=== PATIENT | male | born 1945 | race Caucasian/White ===

== ENCOUNTER → 2018-12-12 | Outpatient (CLI) | payer MEDICARE | END | disposition home or self-care (01) | LOC: CFH 12:21 | PROVIDERS: ATTEND Nurse Practitioner | DX: Z12.2 Encounter for screening for malignant neoplasm of respiratory organs (principal); Z87.891 Personal history of nicotine dependence | CPT/HCPCS: G0297 ==

== ENCOUNTER → 2019-12-20 | Outpatient (CLI) | payer MEDICARE | END | disposition home or self-care (01) | LOC: CFH 11:55 | PROVIDERS: ATTEND Internal Medicine | DX: M41.84 Other forms of scoliosis, thoracic region (principal); R91.1 Solitary pulmonary nodule; J98.4 Other disorders of lung | CPT/HCPCS: 71250 ==

== ENCOUNTER 2021-05-07 10:03 | Outpatient (CLI) | payer MEDICARE | END 2021-05-07 23:59 | disposition home or self-care (01) | LOC: CFH 10:03 | PROVIDERS: ATTEND Internal Medicine | DX: R91.8 Other nonspecific abnormal finding of lung field (principal); J98.4 Other disorders of lung; J84.10 Pulmonary fibrosis, unspecified; M41.84 Other forms of scoliosis, thoracic region; Z87.891 Personal history of nicotine dependence | CPT/HCPCS: 71250 ==